=== PATIENT | male | born 1960 | race Caucasian/White ===

== ENCOUNTER 2019-07-24 09:32 | Inpatient (IN) ==
[2019-07-24] MEDS ORDERED: Ondansetron 4 MG/2 ML VIAL ONE (09:35)
[2019-07-24] MEDS ORDERED: Lidocaine -MPF 2% 2 ML VIAL ONE (09:35)
[2019-07-24] MEDS ORDERED: Dexamethasone 4 MG/ML VIAL ONE (09:35)
[2019-07-24] MEDS ORDERED: *HR* Propofol 200 MG/20 ML VIAL IVP ONE (09:35)
[2019-07-24] MEDS ORDERED: *HR* Midazolam HCl 2 MG/2 ML VIAL ONE (09:35)
[2019-07-24] MEDS ORDERED: *HR* Rocuronium Bromide 50 MG/5 ML VIAL ONE (09:35)
[2019-07-24] MEDS ORDERED: *HR* FentaNYL (PF) 100 MCG/2 ML VIAL ONE ×2 (09:35→12:11)
[2019-07-24] MEDS ORDERED: Lidocaine -MPF 4% 5 ML AMPUL ONE (09:35)
[2019-07-24] MEDS ORDERED: Ringers Solution, Lactated 1,000 ML IVC SCH (10:00)
[2019-07-24] MEDS ORDERED: Ondansetron 4 MG/2 ML VIAL IVP ONE (10:14)
[2019-07-24] MEDS ORDERED: *HR* Promethazine 25 MG/ML VIAL IVP PRN (10:14)
[2019-07-24] MEDS ORDERED: Gabapentin 300 MG CAPSULE PO ONE (10:14)
[2019-07-24] MEDS ORDERED: *HR* Labetalol 20 MG/4 ML SYRINGE IVP PRN (10:14)
[2019-07-24] MEDS ORDERED: *HR* OxyCODONE Immed Rel 5 MG TABLET PO PRN (10:14)
[2019-07-24] MEDS ORDERED: Famotidine 20 MG/2 ML VIAL IVP ONE (10:14)
[2019-07-24] MEDS ORDERED: Ketorolac 30 MG/ML VIAL IVP ONE (10:14)
[2019-07-24] MEDS ORDERED: Acetaminophen IV 1,000 MG/100 ML INFUS..BTL IVPB ONE (10:14)
[2019-07-24] MEDS ORDERED: *HR* HYDROmorphone PF 0.5 MG/0.5 ML SYRINGE IVP PRN (10:14)
[2019-07-24] MEDS ORDERED: CeFAZolin Syr 2,000MG/20 ML 2,000 MG/20 ML SYRINGE IVPB ONE (10:30)
[2019-07-24] MEDS ORDERED: *HR* PHENYLEPHRINE 1,000 MCG/10 ML SYRINGE IVP ONE ×2 (10:50→11:59)
[2019-07-24] MEDS ORDERED: Naloxone 0.4 MG/ML INJ IVP PRN (13:41)
[2019-07-24] MEDS: Gabapentin 300 MG CAPSULE PO SCH ×2 (14:21→20:08)
[2019-07-24] MEDS: *HR* HYDROcodone/Acet 5/325 mg TABLET PO PRN (14:21)
[2019-07-24] MEDS: *HR* Heparin 5,000 UNIT/ML VIAL SQ SCH ×2 (14:22→20:08)
[2019-07-24] MEDS: 0.9 % Sodium Chloride 1,000 ML IVC SCH (14:22)
[2019-07-24] MEDS: Ipratropium/Albuterol Neb 3 ML IH SCH ×3 (16:00→23:31)
[2019-07-24] MEDS: Ketorolac 15 MG/ML VIAL IVP SCH (17:03)
[2019-07-24] MEDS: Sennosides/Docusate Sodium TABLET PO SCH (20:07)
[2019-07-24] MEDS: Famotidine 20 MG TABLET PO SCH (20:08)
[2019-07-25] MEDS: Ketorolac 15 MG/ML VIAL IVP SCH ×5 (00:12→23:15)
[2019-07-25 03:03] LABS: Hematocrit 43.8 % (37.5-50.1); Mean Corpuscular Hemoglobin 28.2 pg (28.0-33.3); Mean Corpuscular Volume 88.3 fL (83.0-100.0); Mean Platelet Volume 10.8 fL (9.4-12.4); Platelet Count 209 K/mcL (140-400); Red Blood Count 4.96 M/mcL (4.19-5.50); Red Cell Distribution Width 14.3 % (11.5-14.5)
[2019-07-25 03:19] LABS: % Iron Saturation 9 % (20-55); BUN/Creatinine Ratio 17 (6-26); Blood Urea Nitrogen 16 mg/dL (6-20); Calcium 8.9 mg/dL (8.6-10.3); Carbon Dioxide 23 mEq/L (23-29); Chloride 103 mEq/L (98-107); Glucose 125 mg/dL (70-105); Iron 30 mcg/dL (65-175); Osmolality,Calculated 283 (280-300); Potassium 3.9 mEq/L (3.5-5.1); Sodium 135 mEq/L (136-145); Transferrin 228 mg/dL (203-362); eGFR For African Americans > 60 (> 60); eGFR For Non-African Americans > 60 (> 60)
[2019-07-25] MEDS: Ipratropium/Albuterol Neb 3 ML IH SCH ×6 (03:42→23:46)
[2019-07-25] MEDS: *HR* Heparin 5,000 UNIT/ML VIAL SQ SCH ×3 (04:08→20:01)
[2019-07-25] MEDS: 0.9 % Sodium Chloride 1,000 ML IVC SCH (04:08)
[2019-07-25] MEDS: Famotidine 20 MG TABLET PO SCH ×2 (07:34→20:00)
[2019-07-25] MEDS: hydroCHLOROthiazide 25 MG TABLET PO SCH (07:34)
[2019-07-25] MEDS: Sennosides/Docusate Sodium TABLET PO SCH ×2 (07:34→20:00)
[2019-07-25] MEDS: Gabapentin 300 MG CAPSULE PO SCH ×3 (07:34→20:01)
[2019-07-25] MEDS ORDERED: Iron Sucrose Complex 400 MG in 0.9 % Sodium Chloride 250 ML IVPB ONE (08:29)
[2019-07-25] MEDS ORDERED: Folic Acid 1 MG in 0.9 % Sodium Chloride 50 ML IVPB ONE (08:45)
[2019-07-25] MEDS ORDERED: Thiamine (B-1) 100 MG in 0.9 % Sodium Chloride 50 ML IVPB ONE (08:45)
[2019-07-26] MEDS: Ipratropium/Albuterol Neb 3 ML IH SCH ×6 (03:49→23:48)
[2019-07-26] MEDS: Ketorolac 15 MG/ML VIAL IVP SCH ×3 (05:41→18:01)
[2019-07-26] MEDS: *HR* Heparin 5,000 UNIT/ML VIAL SQ SCH ×3 (05:42→20:03)
[2019-07-26] MEDS: Gabapentin 300 MG CAPSULE PO SCH ×3 (08:16→20:01)
[2019-07-26] MEDS: Famotidine 20 MG TABLET PO SCH ×2 (08:16→20:01)
[2019-07-26] MEDS: hydroCHLOROthiazide 25 MG TABLET PO SCH (08:16)
[2019-07-26] MEDS: Sennosides/Docusate Sodium TABLET PO SCH ×2 (08:16→20:02)
[2019-07-26] MEDS: Sulfamethoxazole/Trimeth DS 1 EACH TABLET PO SCH ×2 (11:32→20:02)
[2019-07-26] MEDS: *HR* HYDROcodone/Acet 5/325 mg TABLET PO PRN (20:00)
[2019-07-27] MEDS: Ipratropium/Albuterol Neb 3 ML IH SCH ×2 (04:01→07:32)
[2019-07-27] MEDS: Ketorolac 15 MG/ML VIAL IVP SCH ×2 (06:00)
[2019-07-27] MEDS: *HR* Heparin 5,000 UNIT/ML VIAL SQ SCH (06:11)
[2019-07-27 06:54] VITALS: BP 145/98
[2019-07-27] MEDS: Famotidine 20 MG TABLET PO SCH (07:37)
[2019-07-27] MEDS: hydroCHLOROthiazide 25 MG TABLET PO SCH (07:38)
[2019-07-27] MEDS: Sulfamethoxazole/Trimeth DS 1 EACH TABLET PO SCH (07:38)
[2019-07-27] MEDS: Sennosides/Docusate Sodium TABLET PO SCH (07:38)
[2019-07-27] MEDS: Gabapentin 300 MG CAPSULE PO SCH (07:38)
== END 2019-07-27 11:32 | disposition home or self-care (01) | DRG 168 ==
LOC: SAMDAY 09:32 → 2NNU 13:40
PROVIDERS: ADMIT Thoracic Surgery (Cardiothoracic Vascular Surgery); ATTEND Thoracic Surgery (Cardiothoracic Vascular Surgery)